=== PATIENT | male | born 1950 | race Two or more races ===

== ENCOUNTER 2016-04-29 08:32 | Day surgery (SDC) | payer MEDICARE ==
[~2016-04-29 08:32] MED LIST: FENTANYL 250 MCG/5 ML AMP IV PRN; LACTATED RINGERS 1,000 ML IV SCH; MIDAZOLAM HCL 5 MG/5 ML VIAL IV PRN
[2016-04-29] MEDS ORDERED: LACTATED RINGERS 1,000 ML ONE (08:53)
[2016-04-29] MEDS ORDERED: IV START KIT ONE (08:53)
[2016-04-29] MEDS ORDERED: MIDAZOLAM HCL 5 MG/5 ML VIAL ONE (09:33)
[2016-04-29] MEDS ORDERED: FENTANYL 250 MCG/5 ML AMP ONE (09:33)
== END 2016-04-29 10:50 | disposition home or self-care (01) ==
LOC: SDC 08:32
PROVIDERS: ATTEND Internal Medicine Gastroenterology
PROC: 0DJD8ZZ Inspection of Lower Intestinal Tract, Via Natural or Artificial Opening Endoscopic (ICD-10-PCS; principal; 2016-04-29)
DX: Z12.11 Encounter for screening for malignant neoplasm of colon (principal); K57.30 Diverticulosis of large intestine without perforation or abscess without bleeding; I10 Essential (primary) hypertension; K21.9 Gastro-esophageal reflux disease without esophagitis
CPT/HCPCS: 45378; J3010; J2250; J7120